=== PATIENT | male | born 2000 | race Caucasian/White ===

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

== ENCOUNTER 2025-01-10 07:45 | Day surgery (SDC) | payer BC ==
[2025-01-10] MEDS ORDERED: Sodium Chloride 0.9% 10 ML Syringe FLUSH PRN (08:02)
[2025-01-10] MEDS: Lactated Ringers 1,000 ML IV SCH (08:17)
[2025-01-10] MEDS ORDERED: Ketamine 500 mg/10 ML MDV ONE (08:35)
[2025-01-10] MEDS ORDERED: Propofol 200 MG/20 ML SDV ONE (08:35)
[2025-01-10] MEDS ORDERED: Midazolam 1 MG/ML 2 ML SDV ONE (08:35)
[2025-01-10] MEDS ORDERED: Ketamine 500 mg/10 ML MDV IV ONE (09:22)
[2025-01-10 10:16] VITALS: BP 96/60; PULSE 77
== END 2025-01-10 10:30 | disposition home or self-care (01) ==
LOC: LL.SDS 07:45
PROVIDERS: ATTEND Surgery
DX: R10.9 Unspecified abdominal pain (principal); R11.2 Nausea with vomiting, unspecified; Z88.8 Allergy status to other drugs, medicaments and biological substances; Z79.899 Other long term (current) drug therapy
CPT/HCPCS: 00813; J1596; J2250; J2704; J3490; J7120